=== PATIENT | female | born 1985 | race Caucasian/White ===

== ENCOUNTER 2018-11-11 08:11 | Outpatient (CLI) | payer OTHER ==
[~2018-11-11 08:11] MED LIST: DOLOGESIC-DF 51 EACH PO; ZOFRAN4 MG PO
== END 2018-11-11 08:25 | disposition home or self-care (01) ==
LOC: SONOGRAMA 08:11
DX: E03.8 Other specified hypothyroidism (principal)

== ENCOUNTER 2022-03-21 14:00 | Emergency (ER) | payer OTHER ==
[~2022-03-21] VITALS: Ht 160 cm; Wt 50.8 kg
[2022-03-21] MEDS ORDERED: LEVOTHYROXINE25 MCG (14:29)
[2022-03-21] MEDS ORDERED: SINUS RINSE ST1 EACH NS (17:39)
[2022-03-21] MEDS ORDERED: TUSNEL DM LIQU473 ML PO (17:39)
[2022-03-21] MEDS ORDERED: FLONASE ALLERG9.9 ML NASAL (17:39)
== END 2022-03-21 18:04 | disposition home or self-care (01) ==
LOC: ER 14:00
DX: J06.9 Acute upper respiratory infection, unspecified (principal); J00 Acute nasopharyngitis [common cold]

== ENCOUNTER 2023-12-11 10:47 | Outpatient (CLI) | payer OTHER ==
[~2023-12-11 10:47] MED LIST changes: +FLONASE ALLERG9.9 ML NASAL; +LEVOTHYROXINE25 MCG; +SINUS RINSE ST1 EACH NS; +TUSNEL DM LIQU473 ML PO
== END 2023-12-11 11:02 | disposition home or self-care (01) ==
LOC: SONOGRAMA 10:47
PROVIDERS: ATTEND Obstetrics & Gynecology
DX: N94.6 Dysmenorrhea, unspecified (principal); E03.9 Hypothyroidism, unspecified